=== PATIENT | female | born 1950 | race Caucasian/White ===

== ENCOUNTER 2018-10-30 09:42 | Emergency (ER) | payer OTHER ==
--- NOTE | 2018-10-30 10:12 | UC ---
Hand/Wrist HPI - HPI Summary HPI Summary: 67 yo female CC left wrist and thumb pain. Started 1 month ago. No known trauma. Pain worse with ROM and palpation. Has tried ibuprofen which does help some. No pain in rest of hand. - History Of Current Complaint Chief Complaint: UCUpperExtremity Stated Complaint: LT ARM PAIN,NUMBNESS Time Seen by Provider: 10/30/18 09:53 Pain Intensity: 9 - Allergies/Home Medications Allergies/Adverse Reactions: Allergies Allergy/AdvReac Type Severity Reaction Status Date / Time Sulfa (Sulfonamide Allergy Airway Verified 10/30/18 09:54 Antibiotics) Obstruction Home Medications: Home Medications Acetaminophen [Acetaminophen Extra Strength] 1,000 mg PO Q6H PRN 10/30/18 [ History Confirmed 10/30/18] PMH/Surg Hx/FS Hx/Imm Hx Previously Healthy: Yes - Surgical History Surgical History: Yes Surgery Procedure, Year, and Place: [facility] hysterectomy - Family History Known Family History: Positive: Non-Contributory - Social History Alcohol Use: None Substance Use Type: None Smoking Status (MU): Never Smoked Tobacco Review of Systems All Other Systems Reviewed And Are Negative: Yes Constitutional: Positive: Negative Skin: Positive: Negative Eyes: Positive: Negative ENT: Positive: Negative Respiratory: Positive: Negative Cardiovascular: Positive: Negative Gastrointestinal: Positive: Negative Motor: Positive: Negative Neurovascular: Positive: Negative Musculoskeletal: Positive: Other: - see hpi Neurological: Positive: Negative Psychological: Positive: Negative Is Patient Immunocompromised?: No Physical Exam Triage Information Reviewed: Yes Appearance: Well-Appearing, No Pain Distress, Well-Nourished Vital Signs: Initial Vital Signs Temp 97.7 F 10/30/18 09:55 Pulse 69 10/30/18 09:55 Resp 17 10/30/18 09:55 BP 106/55 10/30/18 09:55 Pulse Ox 99 10/30/18 09:55 Vital Signs Reviewed: Yes Eye Exam: Normal Eyes: Positive: Conjunctiva Clear Neck: Positive: Supple Respiratory: Positive: No respiratory distress Musculoskeletal: Positive: Other: - Left wrist is tender to palpation distal radius and proximal thumb. Wrist, elbow and fingers FROM but, pain with ROM of thumb and wrist. Stength NL. No sensation deficit. NL cap refill. Neurological: Positive: Alert Psychological: Positive: Age Appropriate Behavior Skin Exam: Normal Hand/Wrist Course/Dx - Course Course Of Treatment: Patient Name: VERENA LEE Medical Record#: [id number] Ordering Physician: David Foy MD Acct.#: [id number] : 1950 Age: 67 Sex: F Location: [facility] Exam Date: 10/30/18 1007 ADM Status: REG ER Order Information: WRIST LEFT 3+ VWS Accession Number: [id number] CPT: 99862 INDICATION: Distal LEFT radius and thumb pain for one month without known injury. COMPARISON: No relevant prior exams available on the [facility] for comparison. TECHNIQUE: AP, lateral, and oblique views LEFT wrist. REPORT AND IMPRESSION: #. Normal articular alignment. #. No cortical disruption or suspicious trabecular irregularity to suggest fracture. No focal osseous lesions evident. #. 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 #. Unremarkable soft tissue contours. <Electronically signed by Chadwick Pinto MD in [place]> 10/30/18 1030 I discussed the x-rays with the patient. Thumb splint splint placed by nursing, patient neurovascularly intact after placement. Plan; ice, ibuprofen, splint and F/U with Sports Medicine or orthopedics. - Differential Dx/Diagnosis Provider Diagnosis: Left wrist tendonitis Discharge - Sign-Out/Discharge Documenting (check all that apply): Patient Departure All imaging exams completed and their final reports reviewed: Yes - Discharge Plan Condition: Stable Disposition: HOME Prescriptions: Ibuprofen TAB* [Motrin TAB* 600 MG] 600 mg PO TID #20 tab Patient Education Materials: Tendinitis (ED), Wrist Sprain (ED) Referrals: Brandi Crowley MD [Primary Care Provider] - [facility] [Provider Group] Sreekanth King MD [Medical Doctor] - Additional Instructions: FOLLOW UP WITH SPORTS MEDICINE OR ORTHOPEDICS. GET REEVALUATED SOONER IF WORSE OR ANY QUESTIONS OR CONCERNS. - Billing Disposition and Condition Condition: STABLE Disposition: Home
== END 2018-10-30 10:52 | disposition home or self-care (01) ==
LOC: UCCORT 09:42
DX: M77.9 Enthesopathy, unspecified (principal)
CPT/HCPCS: 99203; G0463